=== PATIENT | male | born 1980 | race Caucasian/White ===

== ENCOUNTER → 2017-01-30 | Outpatient (CLI) | payer MEDICARE ==
[~2017-01-30] MED LIST: ALBU0.8322 IH; CEPH-506; CLON1TAB3 PO; CYCL10TA45 PO; DOCU50CA4 PO; FAMO20TA13 PO; FLUT1DIS IH; GBPN300C PO; HYDR-3881 PO; LOPE2TAB34 PO; MELO-249 PO; METF25CR; METH-315 PO; NAPR250T34 PO; OX05NA15; OXYC1TAB87 PO; SERT25TA PO; SRTR100T PO; TAMS0.4C2 PO; TEST100V3 IM; [UNRECOGNIZED DRUG - CODE]; [UNRECOGNIZED DRUG - CODE]
[2017-01-30 20:22] LABS: GC-CHLAMYDIA SOURCE URINE; N.gonorrhoeae SOURCE URINE
[2017-02-04 14:50] LABS: HEPATITIS B SURFACE ANTIGEN C Negative
== END ==
LOC: LAB 14:23
PROVIDERS: ATTEND Family Medicine
DX: Z11.3 Encounter for screening for infections with a predominantly sexual mode of transmission (principal)
CPT/HCPCS: 36415; 86592; 86803; 87340; 87491; 87591; G0433; 86706